=== PATIENT | female | born 1990 | race Caucasian/White ===

== ENCOUNTER → 2020-07-20 | Outpatient (CLI) | payer SELFPAY ==
[2020-07-25 04:08] LABS: Chlamydia By Nucleic Acid AMP Negative (Negative)
[2020-07-25 07:41] LABS: Gonococcus By Nucleic Acid AMP Negative (Negative)
[2020-07-26 16:23] LABS: HPV APTIMA, High Risk Negative (Negative)
[2020-07-27 22:45] LABS: HPV Reflexed? YES, CHARGE PATIENT
== END | disposition home or self-care (01) ==
LOC: LABSPEC 16:55
PROVIDERS: Visit Provider Student in an Organized Health Care Education/Training Program
DX: Z12.4 Encounter for screening for malignant neoplasm of cervix (principal)
CPT/HCPCS: 87491; 87591; 87624; 88175; G0145

== ENCOUNTER → 2020-07-24 10:22 | Outpatient (CLI) | payer SELFPAY ==
[2020-07-24 11:51] LABS: Absolute Neutrophil Count 8.9 X10^3/uL (2.0-7.7); Basophil# 0.07 X10^3/uL; Basophil% 0.6 % (0-1); Eosinophil# 0.15 X10^3/uL; Eosinophils% 1.2 % (0-5); Hematocrit 37.4 % (37-47); Hemoglobin 12.5 g/dL (12.0-15.0); Lymphocyte % 20.8 % (19-41); Mean Corp Hgb Conc 33.4 g/dL (32-36); Mean Corpuscular Volume 95.7 fL (81-99); Mean Platelet Vol. 11.4 fl (6.2-12.0); Monocyte# 0.78 X10^3/uL; Monocyte% 6.2 % (0-10); NRBC Flagged by Analyzer 0 % (0-5); Neutrophil # 8.89 X10^3/uL (2.7-7.7); Neutrophil % 70.9 % (47-70); Platelet Count 187 K/mm3 (150-450); RBC Distribution Width CV 13.6 % (11.6-14.6); RBC Distribution Width SD 46.9 fl (35.1-43.9); Red Blood Count 3.91 M/mm3 (4.2-5.4); White Blood Count 12.5 K/mm3 (4.4-11.0)
[2020-07-24 12:05] LABS: Amphetamine Urine VISTA NEGATIVE (<1000 ng/mL); Barbiturate Urine VISTA NEGATIVE (< 200 ng/mL); Benzodiazepine Urine VISTA NEGATIVE (< 200 ng/mL); Cocaine Urine VISTA NEGATIVE (< 300 ng/mL); Ecstacy Urine VISTA NEGATIVE (< 500 ng/mL); Methadone Urine VISTA NEGATIVE (< 300 ng/mL); PCP Urine VISTA NEGATIVE (< 25 ng/mL); THC Urine VISTA NEGATIVE (< 50 ng/mL); Vista UDS pH Range 6
[2020-07-24 12:48] LABS: HIV - WCH Non-Reactive (Nonreactive); Hepatitis B Surface Antigen Non-Reactive (Nonreactive); Rubella IgG Reactive (Nonreactive)
[2020-07-24 12:52] LABS: Hepatitis C Antibody REACTIVE (Nonreactive)
[2020-07-27 01:10] LABS: Prenatal RPR NONREACTIVE (NONREACTIVE)
== END ==
PROVIDERS: Visit Provider Student in an Organized Health Care Education/Training Program
DX: Z34.81 Encounter for supervision of other normal pregnancy, first trimester (principal)
CPT/HCPCS: 36415; 80307; 85025; 86703; 86762; 86803; 87086; 87340

== ENCOUNTER → 2020-11-16 09:49 | Outpatient (CLI) | payer SELFPAY ==
[2020-11-16 10:49] LABS: Hematocrit 32.6 % (37-47); Hemoglobin 11.1 g/dL (12.0-15.0); Mean Corpuscular Hgb 32.7 pg (27.0-32.0); Mean Corpuscular Volume 96.2 fL (81-99); Mean Platelet Vol. 10.9 fl (6.2-12.0); Platelet Count 202 K/mm3 (150-450); RBC Distribution Width CV 12.8 % (11.6-14.6); RBC Distribution Width SD 45.3 fl (35.1-43.9); Red Blood Count 3.39 M/mm3 (4.2-5.4); White Blood Count 10.7 K/mm3 (4.4-11.0)
[2020-11-16 10:55] LABS: Glucose Challenge Gest 1H 50g 96 mg/dL (70-140)
== END ==
PROVIDERS: Visit Provider Student in an Organized Health Care Education/Training Program
DX: Z34.82 Encounter for supervision of other normal pregnancy, second trimester (principal)
CPT/HCPCS: 36415; 82950; 85027

== ENCOUNTER → 2021-01-10 09:45 | Outpatient (CLI) | payer SELFPAY ==
[2021-01-10 12:11] LABS: HIV - WCH Non-Reactive (Nonreactive); Syphilis Antibodies Non-reactive
[2021-01-11 14:09] LABS: HCV Quant. RNA PCR HCV Not Detected IU/mL (.)
== END ==
PROVIDERS: Visit Provider Obstetrics & Gynecology
DX: B17.10 Acute hepatitis C without hepatic coma (principal)
CPT/HCPCS: 36415; 86703; 86780; 87522

== ENCOUNTER → 2021-02-06 | Outpatient (CLI) | payer SELFPAY | END | disposition home or self-care (01) | LOC: LABSPEC 10:44 | PROVIDERS: Visit Provider Obstetrics & Gynecology | DX: Z36.85 Encounter for antenatal screening for Streptococcus B (principal) | CPT/HCPCS: 87081 ==

== ENCOUNTER 2021-02-28 17:03 | Inpatient (IN) | payer SELFPAY ==
[2021-02-28] VITALS (18 sets, daily range): BP systolic 126–166; BP diastolic 68–89; PULSE 68–76; RESP 18; TEMP 36.4–37.2; O2SAT 95–97; BMI 30.2
[2021-02-28 17:34] LABS: Absolute Lymphocyte Count 1.92 X10^3/uL (0.83-4.51); Absolute Neutrophil Count 8.1 X10^3/uL (2.0-7.7); Basophil# 0.04 X10^3/uL; Basophil% 0.4 % (0-1); Eosinophil# 0.09 X10^3/uL; Eosinophils% 0.8 % (0-5); Hematocrit 34.3 % (37-47); Hemoglobin 11.5 g/dL (12.0-15.0); Lymphocyte # 1.92 X10^3/ul (0.83-4.51); Lymphocyte % 17.1 % (19-41); Mean Corp Hgb Conc 33.5 g/dL (32-36); Mean Corpuscular Hgb 32.2 pg (27.0-32.0); Mean Corpuscular Volume 96.1 fL (81-99); Monocyte# 1.06 X10^3/uL; Monocyte% 9.5 % (0-10); NRBC Flagged by Analyzer 0 % (0-5); Neutrophil # 8.05 X10^3/uL (2.7-7.7); Neutrophil % 71.8 % (47-70); Platelet Count 215 K/mm3 (150-450); RBC Distribution Width SD 46.1 fl (35.1-43.9); Red Blood Count 3.57 M/mm3 (4.2-5.4); White Blood Count 11.2 K/mm3 (4.4-11.0)
--- NOTE | 2021-02-28 17:34 | HP.PCM_ITS ---
History and Physical Date of Admission: 02/28/21 ACOG ANTEPARTUM RECORD - HISTORY AND PHYSICAL (02/28/2021) Name: CARRIE HOLLOWAY History of this : This is a 30 year old [id number] presents at 39 wks + 1 days gestation in active labor at 8 cm dilated with ROM. OB Physician: Mya Sykes [place]'s Physician: UNDECIDED ...................................................................... : 1990 Age: 30 Address: [address] [place] [address] [address] [place] [address] Phone: H) [phone] Insurance Carrier: Emergency Contact: BORIS HOLLOWAY [phone] ...................................................................... Final JEREMIAH: 03/06/21 By Ultrasound: 7 weeks PARITY: (G-Total Pregnancies P-Fullterm,Premature,Induced AB,Spont AB, Ectopics, Multiple,Living) JEREMIAH CONFIRMATION: By LMP: 05/17/20 Initial Exam: 02/21/21 Final JEREMIAH: 03/06/21 OB PROBLEM LIST: ALLERGIC PENICILLINS, CODEINE. Plans for the first time. Enc office class. Smoker. Was 1 1/2 PPD. Now 5-7 c daily. Trying hard to quit. Declines genetics tests. Hep C positive Hx of IV drug use. Consider viral load Hx of 36wk while on IV drugs , not an indications for Progesterone ALLERGIES: Codeine Hives and/or rash Penicillins Laryngeal edema MEDICATIONS: Gummies 400 mcg-35 mg-25 mg-5 mg chewable tablet One Gummie 2 x daily SOCIAL HISTORY: Smoking - Advised to quit and Smoker 17 y. Was 1 1/2 PPD. Now 5-7 daily. Alcohol Use - None Diet - balanced Diet and 1 cup coffee. Water tries for 80 oz. 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 Hours Worked - All the time. Spouse-Sig Other Name - Boris Holloway Spouse-Sig Other Occupation - [employer] Spouse-Sig Other Phone No - [phone] Children Name(s) - [place] PRIOR DELIVERY HISTORY DEL DATE GEST LAB WT LB WT OZ TYPE ANES LABOR TX 05 Sep 15 36 12 5 15 Vag None yes ANTEPARTUM FLOW CHART VISIT GE RTC FU F F MA U U DATE WK MD WKS HT PN HR M SS BP ED WT MA GL D EF ST __ ____ ___ __ __ ___ __ __ __ ___ __ __ __ ___ __ 16 Feb JMW 1 38 V + + 120/76 sl 171 tr - 2+ 75 -2 10 Feb SHM 1 37 V + + 136/80 0 169 ne ne 2 50 -3 Jan JM 1 36 V on + 122/70 tr 171 ne ne Jan JM 2 37 V + + 122/70 0 166 tr - 04 Jan JM 2 32 V + + 112/50 0 166 - - Jan 05 JM 2 30 V + + 132/80 0 162 tr - 08 Jan 03 JM 2 28 - + + 100/58 sl 163 tr - Nov 24 CM 4 24 + + 116/60 sl 158 tr - 10 October 19 CM 4 + + 118/70 0 153 - - Sep 15 CM 4 + 122/68 0 151 ne ne 15 Aug 17 JM 4 11 - + 118/72 0 151 ne ne 15 Jul 7 CM 4 +U 108/78 0 147 - - ANTEPARTUM NOTE(S): Feb 22 2021: Good FM Feb 16 2021: Feb 06 2021: GBS, LARC today Jan 26 2021: Feeling great, Good FM Jan 10 2021: feeling well. Hep C viral load today. AM Dec 28 2020: Good FM,Feeling Well Dec 14 2020: see note Nov 16 2020: occasional cramping encouraged water, glucola today Oct 16 2020: Sep 18 2020: Aug 21 2020: Jul 24 2020: COMPREHENSIVE ANTEPARTUM NOTE(S): Feb 22 2021: Carrie is here for visit. She relates some episodes of being dizzy. Feels this may be her ears? Advised could try antihistamine/decongestant, Make sure getting adequate hydration and protein. Reviewed FM, SROM, and labor. Lives 1 hour away and had rapid labors prior. Can head in when ctx's are approx 10 min apart. LMT Feb 16 2021: Daljitiis here for PNV at 37/3. Has noticed baby movement has changed but reports good FM. No edema noted today. Would like cervix check today. Having BH ctx but is not progressing. Voicing no concerns. Urine neg/neg. LSS Feb 16 2021: Reviewed IOL indications. GBS neg. Labor, ROM, FM precautions. Feb 08 2021: H taken to OB. ab Feb 06 2021: Carrie is here for PNV following US. States she is feeling well with good FM. LARC discussed and declined, form signed. GBS today. Trace of swelling noted in feet. Urine neg/neg. LSS Feb 06 2021: 36 weeks, GBS collected today. Growth ultrasound today AGA. Continue routine follow-up. VI Jan 26 2021: Carrie presents here today at 34 wks 3 days and reports feeling great with good FM. Denies new concerns at this time. EULALIA Jan 26 2021: 34wk, Hep C viral load undectable. HIV, RPR neg. GBS next visit. Growht u/s next visit. VI Jan 10 2021: 32 weeks, for hepatitis C viral load today. HIV, RPR today. VI Dec 28 2020: 30 weeks, patient agrees to check hep C viral load next visit. VI Dec 14 2020: Notes increased pressure and maternity support belt encouraged. Reviewed FM, PTL. Tdap encouraged and reviewed family members around should also be up to date. LMT Dec 14 2020: 20 weeks, 1 hour GTT within normal limits. Will need hep C viral load in future visit. VI Nov 16 2020: 24/2w visit. Glucola drawn. Hx of IVDA. Hx of HCV - needs viral load drawn. DIscussed TDAP 27-36w. F/u 4w. CM Oct 16 2020: Comprehensive US showing no anomalies, normal fluid, AGA, Anterior placenta and no previa. She is feeliing FM more on the sides and advised this is to be expected w/Anterior placenta. Doing well. Glucola bottle and instructions given to be done next visit. Advised she needs to be 24 weeks for blood draw so schedule next appt accordingly. kbm Oct 16 2020: 19/6w visit. Anatomy wnl. Hx of IVDA. Hx of HCV - viral load with GTT. Glucola bottle given. F/u 4w CM Sep 18 2020: Carrie is here for PNV. No edema presently but states she occ will swell by end of day. Eating and taking fluids well without difficulty. No compliants for this visit. Urine neg/neg. LSS Sep 18 2020: 15/6w visit. Hx of IVDA - no longer using. HCV - add viral load to 1hr. F/u 4w with anatomy US. CM Aug 21 2020: Carrie is here for PNV. States having very little nausea. Eating and taking fluids without difficulty. No edema at this visit. No complaints or concerns. Urine neg/neg. LSS Aug 21 2020: 11wk, PNP with Hep C positive. Pt known Hep C pos, used IV drugs now clean. To follow up with GI post . Will consider viral load at next visit. Pt with 36wk while on IV drugs, no indicated for Progesterone. Will start ASA. JM Aug 02 2020: TELEHEALTH NOB-Carrie is a 29 yo G 2 P 1 with JEREMIAH 03-06-21 planning a vag del at [facility] without an epidural, uncertain of post disch ped care and does plan to breastfeed for the 1st time. Carrie works all the time beside [employer] in [place], a women[facility]re[facility] [place]. She and her , Boris, who also works there live beside it. Carrie has a 12 year old son. This is Boris's first. Carrie colvin Jul 24 2020: 7/6w visit, JEREMIAH FINAL 03/06/21 by 7w US. Declines genetic and carrier screening. Feeling well. No family genetic hx. PNP done today. F/u 4w. CM Jul 24 2020: Carrie is here at 7 w 6 d gest w JEREMIAH 03-06-21. Feeling minimal nausea but is quite fatigued. Works at [employer] in [employer]. Genetics Screening form completed noting no family issues. Genetics testing declined. EPDS score 6. Labwork drawn. DR. REVIEW OF SYSTEMS: GENERAL - Denies fever, or chills SKIN - Denies rash, new skin lesions, or change in moles EYES - Denies blurred vision, or change in visual acuity EARS - Denies ear pain, or difficulty hearing NOSE - Denies nasal congestion, discharge, or bleeding MOUTH - Denies sore throat, or difficulty swallowing NECK - Denies pain or swelling RESPIRATORY - Denies shortness of breath, cough, wheezing CARDIOVASCULAR - Denies palpitations, chest pain, orthopnea, PND, peripheral edema, syncope or claudication GASTROINTESTINAL - Denies nausea, vomiting, diarrhea, constipation, Denies abdominal pain, melena and or bright red blood GENITOURINARY - Denies dysuria, frequency of urination, urgency, or hesitancy MUSCULOSKELETAL - Denies joint or muscle pain, or back pain NEUROLOGICAL - Denies localized numbness, weakness, or tingling PSYCHIATRIC - Denies depression, anxiety, substance abuse or suicide attempts ENDOCRINE - Denies heat or cold intolerance, weight loss or gain, increasing thirst HEMATO-IMMUNOLOGIC - Denies easy bruising, bleeding, oral ulcerations or recurrent infections GENETICS SCREENING: Age 35+ years: No Thalassemia: No Neural Tube Defect: No Down Syndrome: No FRANCA-SACHS: No Sickle Cell Disease: No Hemophilia: No Musc. Dystrophy: No Cystic Fibrosis: No-declines screening [place] Chorea: No Mental Retardation: No Fragile X: No Other genetic: No Other defects: No SABs/still births: No Drugs since LMP: No INFECTION HISTORY: High risk AIDS: No High risk Hepatitis: Yes Exposed to TB: No Exposed to Herpes: No Rash/viral illness since LMP: No History of STD: No MENSTRUAL HISTORY: *Menses Amount/Duration: 4 daysMenses Regularity: RegularMenarche (Age Onset): 12* PAST SUMMARY: PARITY: 1. Total Pregnancies............ 2 2. Full Term Pregnancies........ 1 3. Premature.................... 0 4. Abortions - Induced.......... 0 5. Abortions - Spontaneous...... 0 6. Ectopics..................... 0 7. Multiple Births.............. 0 8. Living Children.............. 1 PAST #1: Date of :.................. 09/11/[birth year] Gestation Weeks:................ 36 Length of labor(hours):......... 12 Sex:............................ M Weight-lbs:............... 5 Weight-oz:................ 15 Type of Delivery:............... Vag Type of Anesthesia:............. None Place of Delivery:.............. WR Treatment of Labor?:.... yes Comment: DRUG USE THIS PG. PHYSICAL EXAMINATION General Appearence: 30 yo female in no acute distress Vital Signs: AF, VSS Heart: RRR without rubs or gallops Lungs: CTA x 2 Breasts: deferred Abdomen: gravid Pelvis: Cervix: Presentation: cephalic Station: Fetus: Size: AGA Movement: present Heart: present LAB TEST(S) ORDERED SINCE:06/09/20 02/09/2021 RULE OUT BETA STREP (GRP. B) 01/11/2021 HEPATITIS C,RNA PCR VIRAL LOAD 01/10/2021 L509.8000 01/10/2021 HIV - [facility] 11/16/2020 GLUCOSE CHALLENGE GEST 1H 50G 11/16/2020 CBC-COMPLETE BLOOD CNT NO DIFF 07/26/2020 URINE CULTURE 07/26/2020 RPR 07/26/2020 PAP IG HPV HR APTIMA 07/25/2020 CHLAMYDIA/GC JANET APTIMA 07/24/2020 URINE DRUG SCREEN (VISTA) 07/24/2020 RUBELLA IGG 07/24/2020 HIV - [facility] 07/24/2020 HEPATITIS C ANTIBODY 07/24/2020 HEPATITIS B SURFACE ANTIGEN 07/24/2020 CBC W/DIFF, AUTOMATED == ==== Order Observation Description Value Ref_Range A* Site == ==== RULE OUT BETA S NOTE [facility] HEPATITIS C,RNA NOTE [facility] HEPATITIS C,RNA HCV QT RNA PCR HCV Not Detected IU/m . [facility] HEPATITIS C,RNA HCV LOG 10 TNP . [facility] HEPATITIS C,RNA TEST INFO: Comment . [facility] The quantitative range of this assay is 15 IU/mL to 100 million IU/mL. Performed at: [facility] [id number] Client Support Consultant: Kevin Galindo MD, Phone: [phone] HIV - [facility] NOTE [facility] HIV - [facility] HIV Non-Reactive Nonreactive ML L509.8000 NOTE [facility] L509.8000 SYPHILIS ABS Non-reactive ML GLUCOSE CHALLEN NOTE [facility] GLUCOSE CHALLEN GLU GEST 50G 1H 96 mg/dL 70-140 ML CBC-COMPLETE BL NOTE [facility] CBC-COMPLETE BL WBC 10.7 K/mm3 4.4-11.0 ML CBC-COMPLETE BL RBC 3.39 M/mm3 4.2-5.4 L ML CBC-COMPLETE BL HGB 11.1 g/dL 12.0-15.0 L ML CBC-COMPLETE BL HCT 32.6 37-47 L ML CBC-COMPLETE BL MCV 96.2 fL 81-99 ML CBC-COMPLETE BL MCH 32.7 pg 27.0-32.0 H ML CBC-COMPLETE BL MCHC 34.0 g/dL 32-36 ML CBC-COMPLETE BL RDW CV 12.8 11.6-14.6 ML CBC-COMPLETE BL RDW SD 45.3 fl 35.1-43.9 H ML CBC-COMPLETE BL PLT 202 K/mm3 150-450 ML CBC-COMPLETE BL MPV 10.9 fl 6.2-12.0 ML URINE DRUG SCRE NOTE [facility] URINE DRUG SCRE VISTA UDS PH 6 ML URINE DRUG SCRE AMPHETAMINES NEGATIVE <1000 ng/mL ML URINE DRUG SCRE BARBITIURATES NEGATIVE < 200 ng/mL ML URINE DRUG SCRE BENZODIAZIPINE NEGATIVE < 200 ng/mL ML URINE DRUG SCRE COCAINE NEGATIVE < 300 ng/mL ML URINE DRUG SCRE ECSTACY NEGATIVE < 500 ng/mL ML URINE DRUG SCRE METHADONE NEGATIVE < 300 ng/mL ML URINE DRUG SCRE OPIATES NEGATIVE < 300 ng/mL ML URINE DRUG SCRE PCP NEGATIVE < 25 ng/mL ML URINE DRUG SCRE THC NEGATIVE < 50 ng/mL ML RPR NOTE [facility] RPR RPR NONREACTIVE NONREACTIVE ML URINE CULTURE NOTE [facility] PN N [facility]~[address] [place], [address]~ HEPATITIS B [place] NOTE [facility] HEPATITIS B [place] HEP B SURF AG Non-Reactive Nonreactive ML HIV - WC NOTE [facility] HIV - [facility] HIV Non-Reactive Nonreactive ML RUBELLA IGG NOTE [facility] RUBELLA IGG RUBELLA IGG Reactive Nonreactive ML Antibody Results Interpretation of Immune Status Non Reactive Presumed Non-Immune Equivocal Equivocal Reactive Presumed Immune HEPATITIS C ANT NOTE [facility] HEPATITIS C ANT HEPATITIS C AB REACTIVE Nonreactive ML CRITICAL VALUE VERIFIED. CALLED TO [facility]RAD 07/24/20 1250 Larissa Romero. RESULTS READ BACK BY SAME . Non Reactive: < 0.8 Equivocal: >/= 0.8 to < 1.0 Reactive: >/= 1.0 The CDC recommends that a reactive/equivocal HCV antibody result be followed up by the HCV Nucleic Acid Amplification test ([id number]) CBC W/DIFF, AUT NOTE [facility] CBC W/DIFF, AUT WBC 12.5 K/mm3 4.4-11.0 H ML CBC W/DIFF, AUT RBC 3.91 M/mm3 4.2-5.4 L ML CBC W/DIFF, AUT HGB 12.5 g/dL 12.0-15.0 ML CBC W/DIFF, AUT HCT 37.4 37-47 ML CBC W/DIFF, AUT MCV 95.7 fL 81-99 ML CBC W/DIFF, AUT MCH 32.0 pg 27.0-32.0 ML CBC W/DIFF, AUT MCHC 33.4 g/dL 32-36 ML CBC W/DIFF, AUT RDW CV 13.6 11.6-14.6 ML CBC W/DIFF, AUT RDW SD 46.9 fl 35.1-43.9 H ML CBC W/DIFF, AUT PLT 187 K/mm3 150-450 ML CBC W/DIFF, AUT MPV 11.4 fl 6.2-12.0 ML CBC W/DIFF, AUT NEUT% 70.9 47-70 H ML CBC W/DIFF, AUT LY% 20.8 19-41 ML CBC W/DIFF, AUT MONO% 6.2 0-10 ML CBC W/DIFF, AUT EO% 1.2 0-5 ML CBC W/DIFF, AUT BASO% 0.6 0-1 ML CBC W/DIFF, AUT IG% 0.300 0.0-0.9 ML IG% - Immature Granulocytes (promyelocytes, myelocytes and metamyelocytes) > 1% indicates that a LEFT SHIFT is Present. CBC W/DIFF, AUT ABSOLUTE NEUT 8.9 X10 3/uL 2.0-7.7 H ML CBC W/DIFF, AUT ABSOLUTE LYMPH 2.60 X10 3/uL 0.83-4.51 ML CBC W/DIFF, AUT NUCLEATED RBC 0 0-5 ML PAP IG HPV HR A NOTE [facility] PAP IG HPV HR A DIAG Comment . [facility] NEGATIVE FOR INTRAEPITHELIAL LESION OR MALIGNANCY. PAP IG HPV HR A ADEQ Comment . [facility] Satisfactory for evaluation. Endocervical and/or squamous metaplastic cells (endocervical component) are present. PAP IG HPV HR A PERFORM Comment . [facility] Aislinn Rodas, Supervisory Performance Improvement Analyst (ASCP) This liquid based ThinPrep(R) pap test was screened with the use of an image guided system. PAP IG HPV HR A COMM . . [facility] PAP IG HPV HR A PAPSMR Comment . [facility] The Pap smear is a screening test designed to aid in the detection of premalignant and malignant conditions of the uterine cervix. It is not a diagnostic procedure and should not be used as the sole means of detecting cervical cancer. Both false-positive and false-negative reports do occur. PAP IG HPV HR A HPV APTIMA, HR Negative Negative [facility] This nucleic acid amplification test detects fourteen high- risk HPV types (16,18,31,33,35,39,45,51,52,56,58,59,66,68) without differentiation. Performed at: [address] [id number] Client Support Consultant: Susana Cobian MD, Phone: [phone] Performed at: =[address] [id number] Client Support Consultant: Susana Cobian MD, Phone: [phone] CHLAMYDIA/GC NA NOTE [facility] CHLAMYDIA/GC NA CHLAMY,NUC ACID Negative Negative [facility] CHLAMYDIA/GC NA GC BY NUC ACID Negative Negative [facility] Performed at: =[address], [place] [id number] Client Support Consultant: Susana Cobian MD, Phone: [phone] Group B Beta Streptococcus is not isolated. Culture exhibits no growth. A POSITIVE == ==== Impression /Plan: 39 wks + 1 days intrauterine . Preparations in progress for delivery.
[2021-02-28] MEDS: Lactated Ringers 1,000 ML 50 ML IV (17:56)
[2021-02-28] MEDS: Oxytocin 30 units/NS 500 ml 30 UNITS/500 ML IV.SOLN 334 UNITS IV (18:01)
--- NOTE | 2021-02-28 18:08 | EX.PCM.OBRPT ---
Maternal Data Information Final JEREMIAH: 03/06/21 Gestational age: 39 weeks 1 day gestation Vaginal Delivery Maternal Presentation Maternal Presentation: Active Labor Operative Information Date of Procedure: 02/28/21 Pre-Operative Diagnosis: IUP Post-Operative Diagnosis: IUP Type of Anesthesia: Local with 1% Lidocaine Estimated Blood Loss: 250 cc Fluids Replaced: Crystalloid Findings Description of Procedure: Spontaneous vaginal delivery of a viable male infant with Apgars of 9/9 from an occiput anterior presentation with clear amniotic fluid and normal three-vessel placenta. No episiotomy. First-degree midline laceration repaired with 3-0 Vicryl suture under local. 0.5 cm right labial laceration not bleeding and not repaired. Sponges okay. Delivery physician: Renan Bourne MD. Presentation: Vertex Amniotic Membrane Rupture Type: Spontaneous Amniotic Fluid Description: Clear Placental Delivery Description: Spontaneous Placenta Disposition: [facility] Cord Vessel Description: 3 Vessels Cord Entanglement: None Infant A Gender: Male (1 minute): 9 (5 minute): 9 Delayed Cord Clamping: Yes Post Vaginal Delivery Medications Given After Delivery: IV Pitocin Episiotomy Description: None Laceration: None, Midline and 1st degree Complication Complications: None
--- NOTE | 2021-02-28 18:12 | PCM.DC ---
Discharge Instructions Diet Discharge Diet: No restrictions Activity Discharge Activity: May Drive (In 1 to 2 days if not taking narcotic pain medication), May Shower and May Take a Tub Bath May resume sexual activity in: 4-6 weeks Additional Activity Instructions:: Nothing in the vagina for 4-6 weeks. You may return to work/school in 6 weeks. Dressing / Incision Call your doctor if you observe: Fever of 101 or Higher, Inability to urinate, Inability to have a bowel movement and Using more than 1 pad per hour Follow Up Care Please Follow Up With: Renan Bourne MD When: Call [phone] to make an appointment with your doctor in 6 weeks. Test Results: Test results from this visit will be discussed in further detail at your follow-up appointment, if applicable. Discharge Plan Admission Admit Date/Time: 02/28/21 17:03 Primary Reason for Your Visit: Vaginal delivery Attending Provider: Renan Bourne Discharge Orders/Prescriptions Prescriptions: No Action aspirin [Baby Aspirin] 81 mg Tablet,Chewable 81 mg PO DAILY RF: 0 Prenatabs FA 29-1 mg Tablet 1 tab PO DAILY RF: 0 Disposition Disposition (needs filled in before D/C Order can be placed): Home, Self Care
[2021-02-28] MEDS: Acetaminophen 500 MG Tablet 1000 MG PO (18:42)
[2021-03-01 03:30] VITALS: BP 126/77; PULSE 73; RESP 16; TEMP 36.6; O2SAT 96
[2021-03-01] MEDS: Ibuprofen 600 MG Tablet PO ×2 (06:07→15:14)
[2021-03-01 07:47] VITALS: BP 128/80; PULSE 63; RESP 16; TEMP 36.4
--- NOTE | 2021-03-01 08:15 | PCM.DC ---
Discharge Instructions Diet Discharge Diet: No restrictions Activity Discharge Activity: Return to Normal Activity, May Drive and May Shower May resume sexual activity in: 4-6 weeks Additional Activity Instructions:: Nothing in the vagina for 4-6 weeks. You may return to work/school in 6 weeks. Dressing / Incision Call your doctor if your incision/area has: Continuous Slow Oozing and Foul Smelling Discharge Call your doctor if you observe: Fever of 101 or Higher, Shortness of breath and Chest pain Follow Up Care Please Follow Up With: Renan Bourne MD When: 4 to 6 weeks Test Results: Test results from this visit will be discussed in further detail at your follow-up appointment, if applicable. Discharge Plan Admission Admit Date/Time: 02/28/21 17:03 Primary Reason for Your Visit: Vaginal delivery Attending Provider: Renan Bourne Discharge Orders/Prescriptions Prescriptions: No Action aspirin [Baby Aspirin] 81 mg Tablet,Chewable 81 mg PO DAILY RF: 0 Prenatabs FA 29-1 mg Tablet 1 tab PO DAILY RF: 0 Disposition Disposition (needs filled in before D/C Order can be placed): Home, Self Care
--- NOTE | 2021-03-01 08:17 | PCM.PN.OB ---
Subjective Subjective No overnight complaints. Objective Data Objective Data Vital Signs: Vital Signs Temp Pulse Resp BP Pulse Ox 97.5 F L 63 16 128/80 H 96 03/01/21 07:47 03/01/21 07:47 03/01/21 07:47 03/01/21 07:47 03/01/21 03:30 Oxygen Delivery Method Room Air Weight: 170 lb 13.732 oz Body Mass Index (BMI) 30.2 Intake & Output: Intake and Output for Last 24 Hours 02/27/21 02/28/21 03/01/21 23:59 23:59 23:59 Intake Total 504.17 / 504.17 Output Total 550 / 550 Balance -45.83 / -45.83 Lab / Micro Data Result Diagrams: 02/28/21 17:15 Labs: Laboratory Results - last 24 hr 02/28/21 17:15: WBC 11.2 H, RBC 3.57 L, Hgb 11.5 L, Hct 34.3 L, MCV 96.1, MCH 32.2 H, MCHC 33.5, RDW Std Deviation 46.1 H, RDW Coeff of Debbie 13.0, Plt Count 215, MPV 11.0, Immature Gran % (Auto) 0.400, Neut % (Auto) 71.8 H, Lymph % (Auto) 17.1 L, [place] % (Auto) 9.5, Eos % (Auto) 0.8, Baso % (Auto) 0.4, Absolute Neuts (auto) 8.1 H, Absolute Lymphs (auto) 1.92, Nucleated RBC % 0 02/28/21 17:15: Blood Type A POSITIVE, Antibody Screen NEGATIVE Micro: Microbiology 02/28/21 17:20 Nasal Secretion SARS-CoV-2 Antigen (Rapid) - Final Physical Exam Const alert, oriented x3, no apparent distress, average body habitus, healthy appearing and well nourished HEENT normocephalic and moist oral mucous membranes Head and Scalp: atraumatic Face and Sinus: normal facial exam Eyes PERRL Neck full ROM Resp normal respiratory effort, no retractions and no use of accessory muscles Extremity normal to inspection, full ROM and no clubbing, cyanosis or edema Psych mental status grossly normal, affect normal, speech normal and activity/motor behavior normal Assessment & Plan (1) Vaginal delivery: PLAN: day 1. Breast-feeding. 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
[2021-03-01 12:16] VITALS: BP 135/73; PULSE 71; RESP 16; TEMP 36.4
[2021-03-01 16:45] VITALS: BP 127/75; PULSE 64; RESP 16; TEMP 36.6
== END 2021-03-01 19:45 | disposition home or self-care (01) | DRG 807 ==
LOC: WPOUT 17:07 → WP 17:07
PROVIDERS: Admitting Provider Obstetrics & Gynecology; Visit Provider Obstetrics & Gynecology
DX: O99.334 Smoking (tobacco) complicating childbirth (principal); Z37.0 Single live birth; F17.200 Nicotine dependence, unspecified, uncomplicated; O70.0 First degree perineal laceration during delivery; Z3A.39 39 weeks gestation of pregnancy
CPT/HCPCS: 59025; 59050; 85025; 86850; 86900; 86901; 87426; 99218; J7120; G0378

== ENCOUNTER → 2022-09-04 | Outpatient (CLI) | payer MEDICAID, SELFPAY ==
[2022-09-04 16:30] LABS: Absolute Lymphocyte Count 3.95 X10^3/uL (0.83-4.51); Absolute Neutrophil Count 8.7 X10^3/uL (2.0-7.7); Basophil# 0.04 X10^3/uL; Basophil% 0.3 % (0-1); Eosinophil# 0.19 X10^3/uL; Eosinophils% 1.4 % (0-5); Hematocrit 35.2 % (37-47); Hemoglobin 12.1 g/dL (12.0-15.0); Lymphocyte # 3.95 X10^3/ul (0.83-4.51); Lymphocyte % 29.1 % (19-41); Mean Corp Hgb Conc 34.4 g/dL (32-36); Mean Corpuscular Hgb 31.4 pg (27.0-32.0); Mean Corpuscular Volume 91.4 fL (81-99); Mean Platelet Vol. 10.8 fl (6.2-12.0); Monocyte# 0.62 X10^3/uL; Monocyte% 4.6 % (0-10); NRBC Flagged by Analyzer 0 % (0-5); Neutrophil # 8.71 X10^3/uL (2.7-7.7); Neutrophil % 64.2 % (47-70); Platelet Count 233 K/mm3 (150-450); RBC Distribution Width CV 13.9 % (11.6-14.6); RBC Distribution Width SD 46.1 fl (35.1-43.9); Red Blood Count 3.85 M/mm3 (4.2-5.4); White Blood Count 13.6 K/mm3 (4.4-11.0)
[2022-09-04 17:41] LABS: ALB/GLOB Ratio 1.1 RATIO (0.9-2.4); AST(SGOT) 17 U/L (15-37); Alanine Aminotransfer ALT/SGPT 32 U/L (13-56); Albumin, Serum 3.7 g/dL (3.2-5.0); Alkaline Phosphatase 57 U/L (45-117); Anion Gap 8 (5-15); BUN 8 mg/dL (7-18); BUN/Creat Ratio 19.4 RATIO (10-20); Calcium,Total 9.3 mg/dL (8.5-10.1); Chloride 106 mmol/L (98-107); Creatinine, Serum 0.41 mg/dL (0.55-1.02); EST Glomerular Filtration Rate 189 mL/min (>60); Est Glom Filt Rate - Afr Amer 228 mL/min (>60); Globulin 3.3 g/dL (2.2-4.2); Glucose 80 mg/dL (74-106); Potassium 3.4 mmol/L (3.5-5.1); Sodium Level 137 mmol/L (136-145)
[2022-09-04 18:32] LABS: HIV - WCH Non-Reactive (Nonreactive); Hepatitis B Surface Antigen Non-Reactive (Nonreactive); Rubella IgG Reactive (Nonreactive); Syphilis Antibodies Non-reactive
[2022-09-04 18:39] LABS: Hepatitis C Antibody Reactive (Nonreactive)
[2022-09-06 21:07] LABS: HCV Quant. RNA PCR HCV Not Detected IU/mL (.)
[2022-09-07 11:25] LABS: V-Zoster IgG (Immunity) 1387 index (Immune >165)
== END | disposition home or self-care (01) ==
PROVIDERS: Visit Provider Student in an Organized Health Care Education/Training Program
DX: Z34.81 Encounter for supervision of other normal pregnancy, first trimester (principal)
CPT/HCPCS: 80053; 85025; 86703; 86762; 86780; 86787; 86803; 87086; 87340; 87522

== ENCOUNTER → 2022-11-08 | Outpatient (CLI) | payer MEDICAID, SELFPAY ==
[2022-11-08 10:12] LABS: Absolute Lymphocyte Count 2.54 X10^3/uL (0.83-4.51); Absolute Neutrophil Count 8.3 X10^3/uL (2.0-7.7); Basophil# 0.04 X10^3/uL; Basophil% 0.3 % (0-1); Eosinophil# 0.11 X10^3/uL; Eosinophils% 0.9 % (0-5); Hematocrit 33.8 % (37-47); Hemoglobin 11.6 g/dL (12.0-15.0); Lymphocyte # 2.54 X10^3/ul (0.83-4.51); Lymphocyte % 21.6 % (19-41); Mean Corp Hgb Conc 34.3 g/dL (32-36); Mean Corpuscular Hgb 32.9 pg (27.0-32.0); Mean Corpuscular Volume 95.8 fL (81-99); Mean Platelet Vol. 10.3 fl (6.2-12.0); Monocyte# 0.71 X10^3/uL; NRBC Flagged by Analyzer 0 % (0-5); Neutrophil # 8.27 X10^3/uL (2.7-7.7); Neutrophil % 70.6 % (47-70); Platelet Count 191 K/mm3 (150-450); RBC Distribution Width SD 49.4 fl (35.1-43.9); Red Blood Count 3.53 M/mm3 (4.2-5.4); White Blood Count 11.7 K/mm3 (4.4-11.0)
[2022-11-08 10:36] LABS: Creatinine, Urine (random) < 13.00 mg/dL (NO RANGE EST.); Protein, Urine (Random) < 6.0 mg/dL (<11.9)
[2022-11-08 10:56] LABS: ALB/GLOB Ratio 0.9 RATIO (0.9-2.4); AST(SGOT) 13 U/L (15-37); Alanine Aminotransfer ALT/SGPT 19 U/L (13-56); Albumin, Serum 3.2 g/dL (3.2-5.0); Alkaline Phosphatase 63 U/L (45-117); Anion Gap 7 (5-15); BUN 4 mg/dL (7-18); BUN/Creat Ratio 12.3 RATIO (10-20); Calcium,Total 8.8 mg/dL (8.5-10.1); Chloride 111 mmol/L (98-107); Creatinine, Serum 0.33 mg/dL (0.55-1.02); EST Glomerular Filtration Rate 247 mL/min (>60); Est Glom Filt Rate - Afr Amer 299 mL/min (>60); Globulin 3.5 g/dL (2.2-4.2); Glucose 62 mg/dL (74-106); LDH 128 U/L (84-246); Potassium 3.5 mmol/L (3.5-5.1); Protein, Total 6.7 g/dL (6.4-8.2); Sodium Level 140 mmol/L (136-145)
[2022-11-09 12:08] LABS: HCV Quant. RNA PCR HCV Not Detected IU/mL (.)
== END | disposition home or self-care (01) ==
PROVIDERS: Visit Provider Student in an Organized Health Care Education/Training Program
DX: Z34.82 Encounter for supervision of other normal pregnancy, second trimester (principal); B18.2 Chronic viral hepatitis C; Z3A.00 Weeks of gestation of pregnancy not specified
CPT/HCPCS: 36415; 80053; 82570; 83615; 84156; 85025; 87086; 87522

== ENCOUNTER → 2023-01-08 | Outpatient (CLI) | payer MEDICAID, SELFPAY ==
[2023-01-08 11:10] LABS: Absolute Lymphocyte Count 1.78 X10^3/uL (0.83-4.51); Absolute Neutrophil Count 10.9 X10^3/uL (2.0-7.7); Basophil# 0.05 X10^3/uL; Basophil% 0.4 % (0-1); Eosinophil# 0.19 X10^3/uL; Eosinophils% 1.4 % (0-5); Hematocrit 30.8 % (37-47); Hemoglobin 10.2 g/dL (12.0-15.0); Lymphocyte # 1.78 X10^3/ul (0.83-4.51); Lymphocyte % 13.1 % (19-41); Mean Corp Hgb Conc 33.1 g/dL (32-36); Mean Corpuscular Hgb 32.6 pg (27.0-32.0); Mean Corpuscular Volume 98.4 fL (81-99); Monocyte# 0.67 X10^3/uL; Monocyte% 4.9 % (0-10); NRBC Flagged by Analyzer 0 % (0-5); Neutrophil # 10.85 X10^3/uL (2.7-7.7); Neutrophil % 79.6 % (47-70); Platelet Count 189 K/mm3 (150-450); RBC Distribution Width CV 13.1 % (11.6-14.6); RBC Distribution Width SD 46.9 fl (35.1-43.9); Red Blood Count 3.13 M/mm3 (4.2-5.4); White Blood Count 13.6 K/mm3 (4.4-11.0)
[2023-01-08 11:19] LABS: Glucose Challenge Gest 1H 50g 128 mg/dL (70-140)
[2023-01-08 11:41] LABS: Syphilis Antibodies Non-reactive
== END | disposition home or self-care (01) ==
LOC: WOBLAB 10:28
PROVIDERS: Visit Provider Student in an Organized Health Care Education/Training Program
DX: Z34.83 Encounter for supervision of other normal pregnancy, third trimester (principal)
CPT/HCPCS: 36415; 82950; 85025; 86780

== ENCOUNTER 2023-03-25 10:00 | Inpatient (IN) | payer MEDICAID, SELFPAY ==
[2023-03-25] VITALS (34 sets, daily range): BP systolic 124–159; BP diastolic 64–104; PULSE 65–98; RESP 16; TEMP 36.6–37.3; O2SAT 78–98; BMI 26.8
[2023-03-25] MEDS: Lactated Ringers 1,000 ML 50 ML IV (09:15)
[2023-03-25 10:30] LABS: Absolute Lymphocyte Count 2.04 X10^3/uL (0.83-4.51); Absolute Neutrophil Count 10.6 X10^3/uL (2.0-7.7); Basophil# 0.04 X10^3/uL; Basophil% 0.3 % (0-1); Eosinophil# 0.06 X10^3/uL; Eosinophils% 0.4 % (0-5); Hematocrit 33.5 % (37-47); Hemoglobin 11.3 g/dL (12.0-15.0); Lymphocyte # 2.04 X10^3/ul (0.83-4.51); Lymphocyte % 14.7 % (19-41); Mean Corp Hgb Conc 33.7 g/dL (32-36); Mean Corpuscular Hgb 33.1 pg (27.0-32.0); Mean Corpuscular Volume 98.2 fL (81-99); Mean Platelet Vol. 10.6 fl (6.2-12.0); Monocyte% 7.2 % (0-10); NRBC Flagged by Analyzer 0 % (0-5); Neutrophil # 10.61 X10^3/uL (2.7-7.7); Neutrophil % 76.6 % (47-70); Platelet Count 203 K/mm3 (150-450); RBC Distribution Width CV 13.9 % (11.6-14.6); RBC Distribution Width SD 49.5 fl (35.1-43.9); Red Blood Count 3.41 M/mm3 (4.2-5.4); White Blood Count 13.9 K/mm3 (4.4-11.0)
[2023-03-25] MEDS: LACTATED RINGERS 500 ML 999 ML IV (10:50)
[2023-03-25 11:02] LABS: Syphilis Antibodies Non-reactive
[2023-03-25] MEDS: Clindamycin 900 MG/50 ML BAG 75 MG IV (11:05)
[2023-03-25] MEDS: fentaNYL-bupivacaine (epidural) 100 ML BAG EPIDURAL (11:08)
[2023-03-25 11:45] LABS: Amphetamine Urine VISTA NEGATIVE (<1000 ng/mL); Barbiturate Urine VISTA NEGATIVE (< 200 ng/mL); Benzodiazepine Urine VISTA NEGATIVE (< 200 ng/mL); Cocaine Urine VISTA NEGATIVE (< 300 ng/mL); Ecstacy Urine VISTA NEGATIVE (< 500 ng/mL); Methadone Urine VISTA NEGATIVE (< 300 ng/mL); PCP Urine VISTA NEGATIVE (< 25 ng/mL); THC Urine VISTA NEGATIVE (< 50 ng/mL); Vista UDS pH Range 7
[2023-03-25 11:56] LABS: Protein, Urine (Random) 7.6 mg/dL (<11.9); Protein:Creat Ratio 481 mg/g CRE (0-200)
[2023-03-25 12:09] LABS: AST(SGOT) 13 U/L (15-37); Alanine Aminotransfer ALT/SGPT 15 U/L (13-56); Creatinine, Serum 0.38 mg/dL (0.55-1.02); EST Glomerular Filtration Rate 208 mL/min (>60); Est Glom Filt Rate - Afr Amer 252 mL/min (>60); Estimated Creatinine Clearance 174.19 ml/min
--- NOTE | 2023-03-25 13:15 | PCM.HP.OB ---
HPI - General General Date of Admission: 03/25/23 HPI Narrative GA BOOGIE, is a 32 F @ 38 weeks who presents in labor- found to be 5-6 cm with bulging membranes in office with irregular ctx sent for admission. [facility] Medical History (Updated 03/25/23 @ 13:[address] Miryam Duarte MD) Seizures Home Medications vits,calcium no.78-iron fumarate-folic acid 29 mg-1 mg tablet (Prenatabs FA) 1 tab PO DAILY 02/28/21 [History Last Taken 03/23/23] acetaminophen 325 mg tablet (Tylenol) 650 mg PO Q6H pain 03/25/23 [History Last Taken 03/23/23] ferrous sulfate 27 mg iron tablet 27 mg PO DAILY anemia 03/25/23 [History Last Taken 03/23/23] ondansetron 4 mg disintegrating tablet 4 mg PO Q6H PRN nausea 03/25/23 [History Last Taken 03/23/23] promethazine 12.5 mg tablet 12.5 mg PO QHS PRN PRN nausea 03/25/23 [History Last Taken 03/23/23] Allergy/AdvReac Type Severity Reaction Status Date / Time codeine Allergy Hives Verified 02/28/21 17:08 Penicillins Allergy Anaphylaxis Verified 02/28/21 17:07 Surgical History (Updated 03/25/23 @ 10:41 by Sandee Lan) History of surgery History of surgery Social History Smoking Status: Light Smoker (<10/day) History Elective abortions Hx Para 2 Spontaneous abortions Hx # Term Pregnancies Ectopic pregnancies Hx # Pregnancies Multiple births # of living children NST FHR Rate Baby A Baseline: 130 Variability:: Moderate Accelerations:: 15 x 15 Decelerations:: None NST Reactive:: Yes FHR Category:: Category I Vital Signs Vital Signs Vital Signs: 03/25/23 10:09 03/25/23 10:09 03/25/23 10:27 Temperature Pulse Rate 98 Blood Pressure 139/104 H 149/98 H BP Systolic 139 149 BP Diastolic 104 98 Pulse Ox 03/25/23 10:27 03/25/23 10:44 03/25/23 10:44 Temperature Pulse Rate 92 88 Blood Pressure 157/90 H BP Systolic 157 BP Diastolic 90 Pulse Ox 03/25/23 10:58 03/25/23 10:58 03/25/23 11:00 Temperature Pulse Rate 83 Blood Pressure 154/96 H BP Systolic 154 BP Diastolic 96 Pulse Ox 78 03/25/23 11:01 03/25/23 11:01 03/25/23 11:06 Temperature Pulse Rate 86 82 Blood Pressure BP Systolic BP Diastolic Pulse Ox 98 03/25/23 11:06 03/25/23 11:11 03/25/23 11:11 Temperature Pulse Rate 88 Blood Pressure BP Systolic BP Diastolic Pulse Ox 98 97 03/25/23 11:14 03/25/23 11:14 03/25/23 11:16 Temperature Pulse Rate 77 81 Blood Pressure 158/81 H BP Systolic 158 BP Diastolic 81 Pulse Ox 03/25/23 11:16 03/25/23 11:20 03/25/23 11:20 Temperature Pulse Rate 84 Blood Pressure 137/82 H BP Systolic 137 BP Diastolic 82 Pulse Ox 97 03/25/23 11:25 03/25/23 11:25 03/25/23 11:31 Temperature Pulse Rate 89 Blood Pressure 143/84 H 140/86 H BP Systolic 143 140 BP Diastolic 84 86 Pulse Ox 03/25/23 11:31 03/25/23 11:35 03/25/23 11:35 Temperature Pulse Rate 92 80 Blood Pressure 143/78 H BP Systolic 143 BP Diastolic 78 Pulse Ox 03/25/23 11:41 03/25/23 11:41 03/25/23 11:45 Temperature Pulse Rate 80 Blood Pressure 154/89 H 136/90 H BP Systolic 154 136 BP Diastolic 89 90 Pulse Ox 03/25/23 11:45 03/25/23 11:58 03/25/23 11:58 Temperature Pulse Rate 82 74 Blood Pressure BP Systolic BP Diastolic Pulse Ox 97 03/25/23 12:15 03/25/23 12:15 03/25/23 12:30 Temperature Pulse Rate 72 76 Blood Pressure 139/85 H BP Systolic 139 BP Diastolic 85 Pulse Ox 03/25/23 12:30 03/25/23 12:30 03/25/23 12:45 Temperature 99.1 F Pulse Rate Blood Pressure 124/76 H BP Systolic 124 BP Diastolic 76 Pulse Ox 97 03/25/23 12:45 03/25/23 13:13 03/25/23 13:13 Temperature Pulse Rate 79 95 Blood Pressure 139/93 H BP Systolic 139 BP Diastolic 93 Pulse Ox Weight Weight: 68.7 kg Body Mass Index (BMI) 26.8 Physical Exam Const alert and oriented x3 General Appearance: cooperative HEENT normocephalic GI GI Narrative: Gravid, non tender to palpation. OB / External & Speculum: external exam normal Extremity normal to inspection Skin no rashes or lesions noted Neuro oriented x3 and CN's II-XII intact bilaterally Psych Appearance: grossly normal Labs Labs Labs: Blood Type A POSITIVE Antibody Screen NEGATIVE Hct 33.5 % (37-47) L Hgb 11.3 g/dL (12.0-15.0) L Syphilis Total Ab Non-reactive VZV IgG Antibody 1387 index (Immune >165) Rubella IgG Antibody Reactive (Nonreactive) Hep Bs Antigen Non-Reactive (Nonreactive) Hepatitis C Antibody Reactive (Nonreactive) Chlamydia DNA (JANET) Negative (Negative) N.gonorrhoeae DNA (JANET) Negative (Negative) HIV 1&2 Antibody Non-Reactive (Nonreactive) Glucose 1 Hr 50 gm 128 mg/dL (70-140) Rhogam given: No Miscellaneous Test Assessment & Plan (1) History of hepatitis C: (2) History of delivery, currently : (3) Tobacco use affecting in third trimester, antepartum: (4) History of drug use: (5) with care elsewhere: (6) Anemia affecting in third trimester: PLAN: Plan Admit to L&D Montior FHR/TOCO Epidural if requested for pain Monitor VS Anticipate GBS positive - clindamycin sensitive for prophylaxis
--- NOTE | 2023-03-25 13:19 | PCM.PN.BLA ---
Progress Note AROM performed- ? port wine colored amniotic fluid. FHR cat 1. Continue to monitor. VE: /-2
[2023-03-25] MEDS: Oxytocin 10 UNITS/ML Vial IM (13:53)
[2023-03-25] MEDS: Oxytocin 15 Units/NS 250ml 15 UNITS/250 ML IV.SOLN 83 UNITS IV (13:54)
--- NOTE | 2023-03-25 13:57 | EX.PCM.OBRPT ---
Vaginal Delivery Maternal Presentation Maternal Presentation: Active Labor Operative Information Date of Procedure: 03/25/23 Pre-Operative Diagnosis: 38 weeks, labor, hx of hep C, Hx Drug abuse, care elsewhere, anemia in 3rd trimester, h/o delivery Post-Operative Diagnosis: same, live female infant Surgery / Procedure Performed: Spontaneous Vaginal Delivery Type of Anesthesia: Epidural Estimated Blood Loss: 100 Time of Delivery: 13:50 Findings Description of Procedure: Regressed to fully dilated. Good maternal pushing efforts delivered the infant's head followed by the anterior shoulder and the rest the 's body. was vigorous at time of delivery placed on the mother's chest for immediate skin to skin. Delayed cord clamping was performed. Perineum and vaginal tissue were intact. Placenta was delivered without complication and intact. IM and IV Pitocin were given per protocol. Presentation: Vertex Amniotic Membrane Rupture Type: Artificial Amniotic Fluid Description: Clear (After delivery of the fetus the amniotic fluid was clear behind the fetus) Placental Delivery Description: Spontaneous Placenta Disposition: [facility] Specimen(s) Removed: placenta Cord Vessel Description: 3 Vessels Cord Entanglement: None Infant A Gender: Female (1 minute): 9 (5 minute): 9 Delayed Cord Clamping: Yes Post Vaginal Delivery Medications Given After Delivery: IV Pitocin and IM Pitocin Episiotomy Description: None Laceration: None Complication Complications: None
[2023-03-25] MEDS: 0.9% Saline Lock 10 ML Syringe IV (15:30)
[2023-03-25] MEDS: Acetaminophen 500 MG Tablet 1000 MG PO (20:09)
[2023-03-25] MEDS: Ibuprofen 600 MG Tablet PO (20:09)
[2023-03-26] VITALS (7 sets, daily range): BP systolic 135–149; BP diastolic 65–85; PULSE 66–73; RESP 14–18; TEMP 36.2–37; O2SAT 97
--- NOTE | 2023-03-26 08:19 | PCM.PN.OB ---
Subjective Subjective Patient seen at bedside. Feeling good. Denies any pain. Ambulating and voiding without difficulty. Lochia decreasing. Objective Data Objective Data Vital Signs: Vital Signs Temp Pulse Resp BP Pulse Ox O2 Del Method 97.8 F 71 16 137/85 H 95 Room Air 03/26/23 03:55 03/26/23 03:55 03/26/23 03:55 03/26/23 03:55 03/25/23 13:58 03/25/23 17:08 Oxygen Delivery Method Room Air Weight: 151 lb 7.321 oz Body Mass Index (BMI) 26.8 Intake & Output: Intake and Output for Last 24 Hours 03/24/23 03/25/23 03/26/23 23:59 23:59 23:59 Intake Total 1738.34 / 1738.34 Output Total 900 / 900 Balance 838.34 / 838.34 Lab / Micro Data 03/25/23 10:15 03/25/23 11:30 Labs: Laboratory Results - last 24 hr 03/25/23 10:15: WBC 13.9 H, RBC 3.41 L, Hgb 11.3 L, Hct 33.5 L, MCV 98.2, MCH 33.1 H, MCHC 33.7, RDW Std Deviation 49.5 H, RDW Coeff of Debbie 13.9, Plt Count 203, MPV 10.6, Immature Gran % (Auto) 0.800, Neut % (Auto) 76.6 H, Lymph % (Auto) 14.7 L, [place] % (Auto) 7.2, Eos % (Auto) 0.4, Baso % (Auto) 0.3, Absolute Neuts (auto) 10.6 H, Absolute Lymphs (auto) 2.04, Nucleated RBC % 0, Syphilis Total Ab Non-reactive, Blood Type A POSITIVE, Antibody Screen NEGATIVE 03/25/23 10:20: Urine Opiates Screen NEGATIVE, Urine Methadone Screen NEGATIVE, Ur Barbiturates Screen NEGATIVE, Ur Phencyclidine Scrn NEGATIVE, Ur Amphetamines Screen NEGATIVE, MDMA (Ecstasy) Screen NEGATIVE, U Benzodiazepines Scrn NEGATIVE, Urine Cocaine Screen NEGATIVE, U Cannabinoids Screen NEGATIVE, Ur Drug Screen Comment 03/25/23 11:30: Creatinine 0.38 L, Estim Creat Clear Calc 174.19, Est GFR (MDRD) Af Amer 252, Est GFR (MDRD) Non-Af 208, Uric Acid 4.0, AST 13 L, ALT 15, U Random Total Protein 7.6, Urine Creatinine 15.80, Protein/Creatinin Ratio 481 H Micro: Microbiology 03/25/23 10:40 Genital vaginal Chlamydia trachomatis (PCR) - Final 03/25/23 10:40 Genital vaginal Neisseria gonorrhoeae (PCR) - Final ROS Eyes Eyes: Denies blurry vision, change in vision or spots in vision ENT HEENT: Denies dizziness or headache(s) Cardiovascular Cardiovascular: Denies abdominal pain, chest pain or dyspnea Respiratory/Chest Respiratory/Chest: Denies cough, dyspnea, shortness of breath at rest or shortness of breath with exertion Gastrointestinal Gastrointestinal: Denies abdominal pain, diarrhea or vomiting Genitourinary Genitourinary: Denies change in urinary stream, difficulty urinating or dysuria Musculoskeletal Musculoskeletal: Reports none Integumentary Integumentary: Denies rash Neurologic Neurologic: Denies dizziness, headache(s), memory loss or weakness Assessment & Plan (1) Vaginal delivery: (2) Tobacco use affecting in third trimester, antepartum: (3) with care elsewhere: (4) History of drug use: (5) Care and examination of lactating mother: PLAN: Plan PPD 1 Routine care Pain control support Anticipate D/C tomorrow- has to stay 36 hours pp for untreated GBS
[2023-03-26] MEDS: Ibuprofen 600 MG Tablet PO ×3 (08:26→22:31)
[2023-03-26] MEDS: Acetaminophen 500 MG Tablet 1000 MG PO ×3 (08:27→22:30)
--- NOTE | 2023-03-26 10:34 | CASEMGMT ---
Social Work Assessment Labor and Delivery Unit Patient Address: [address] [place] [address] Phone number: [phone] Date of Referral: 03/25/23 Time of Referral:? [id number] Referred By: Miryam Mcallister Date of Intervention: ??03/26/23 Time of Intervention:?1000 Reason for Referral:? other Sw completed chart review and acknowledges social work consult due to other. Sw presented to bedside and introduced self to mother of baby (JOSSELYN- Carrie). Sw explained reason for sw involvement and completed psychosocial assessment. Sw also asked MOB to completed [place] Depression Scale. History obtained from: medical records, MOB??? Household composition: MOB reports that currently living in the home is herself, father of baby (FOJena- Radha), MOB 14 year old son- El and parents older son together, Sherman (: 02/28/21). MOB states that they live in an appartment and she does not express any concerns. Patient's parent/guardian status: JOSSELYN states that she and FOB met at a [employer] and have been together for 4 years. MOB denies any domestic violence or intimate partner violence. Medical History: ?JOSSELYN is 3, para 3. JOSSELYN received routine care with [facility] throughout . JOSSLEYN delivered baby girl, named Ana Gandara, via vaginal delivery at 38 weeks gestation. Baby girl weighed 6lb 6oz at delivery and her apgars were 9 and 9. MOB states that she is breast feeding and it is going ok. Educational Status:? MOB states that she and FOB both obtained their GEDs Financial Status: FOB is employed outside of the home at [employer]. He does not get paternity leave but did take a day off of work. Infant Supplies:?MOB states that she has obtained all necessary baby supplies including: car seat, safe sleep space, clothes, diapers, wipes and a breast pump? Childcare/Caregiver(s):? MOB will be the primary caregiver to baby, along with FOB when he is not at work. Transportation:?? MOB states that both parents have their drivers license and reliable transportation. No transportation barriers at this time. Programs/Agencies Involved: ?MOB is connected to insurance through [employer] [facility] [employer] [facility] ([place] and [place]. Children Services/Legal Issues:?MOB states that she does have history with Children Services due her former substance use history. JOSSELYN states that she does have a history of heroin use, and gave her parents custody of her first son while she went through detox and inpatient substance use treatment. JOSSELYN states that when she finished the program she was able to get custody of her son back. JOSSELYN reports that that was almost 5 years ago. Behavioral Health Issues: ??Mental Health History: MOB states that PREET does not have any mental health diagnoses. JOSSELYN states that she has been diagnosed with anxiety in the past, however she feels that that diagnosis went hand in hand with her substance use history. JOSSELYN stated that she also experienced the baby blues after she had her second son two years ago. She stated that she felt down and sad. JOSSELYN stated that at that time she had also lost her job at at [employer] agency that she was really passionate about. JOSSELYN stated that she had worked at [employer] in [employer] and then was told that when her maternity leave was up she was no longer employed there because someone offered to do the job for free. JOSSELYN completed [place] Depression scale and her score was a 5. ??? Substance Use History:?JOSSELYN has history of heroin use, and will be sober for 5 years this month. MOB states that PREET does not have any addiction use history. ? Family History:???MOB states that her father is a dry alcoholic. MOB states that he will still drink from time to time.?? Drug Screens: All urine screens during were negative. ?? Family/Social Stressors:? JOSSELYN denies stressors at this time. Support Systems: JOSSELYN states that she has a lot of supports in place. MOB states that her parents are really supportive, PREET and a group of women that she meets with regularly are all supportive. Depression/Shaken Baby/Safe Sleeping:? Sw educated MOB on signs and symptoms of baby blues and depression. Sw provided MOB with literature to review. MOB expressed understanding. Sw educated MOB on shaken baby prevention and ABCs of safe sleep. MOB expressed understanding. ASSESSMENT:? MOB was appropriate and engaged during assessment. Baby observed to be content in cribette. MOB answered questions asked and elaborated at times on her answers. MOB not connected at this time to any mental health supports and was encouraged to do so to help her during this period. MOB with natural supports in place and has obtained all necessary items for baby. PLAN:? MOB and baby to be discharged when medically ready. ?No other services requested or indicated. Shanna Vallejo, OCEANOLOGY TEACHER, STUDENT WORKER
[2023-03-27 01:05] VITALS: BP 141/69; PULSE 58; RESP 18; TEMP 36.7; O2SAT 95
[2023-03-27] MEDS: Acetaminophen 500 MG Tablet 1000 MG PO (05:12)
[2023-03-27] MEDS: Ibuprofen 600 MG Tablet PO (05:12)
--- NOTE | 2023-03-27 06:17 | PCM.DC.SUM ---
Providers Date of Admission: 03/25/23 Primary Care Physician: [facility] Phys Reason For Visit: VAGINAL DELIVERY Diagnosis Discharge Diagnosis (1) Vaginal delivery: Status: Acute Code(s): O80 - Encounter for full-term uncomplicated delivery (2) Tobacco use affecting in third trimester, antepartum: Status: Acute Code(s): O99.333 - Smoking (tobacco) complicating , third trimester (3) with care elsewhere: Status: Acute Code(s): Z34.90 - Encounter for supervision of normal , unspecified, unspecified trimester (4) History of drug use: Status: Acute Code(s): F19.91 - Other psychoactive substance use, unspecified, in remission (5) Care and examination of lactating mother: Status: Acute Code(s): Z39.1 - Encounter for care and examination of lactating mother Plan PPD 2 Routine care Pain control support D/C home- had to stay 36 hours pp for untreated GBS Medications at Discharge Home Medications vits,calcium no.78-iron fumarate-folic acid 29 mg-1 mg tablet (Prenatabs FA) 1 tab PO DAILY 02/28/21 acetaminophen 325 mg tablet (Tylenol) 650 mg PO Q6H pain 03/25/23 ferrous sulfate 27 mg iron tablet 27 mg PO DAILY anemia 03/25/23 ondansetron 4 mg disintegrating tablet 4 mg PO Q6H PRN nausea 03/25/23 Hospital Course Procedures None Summary of Care Provided Minutes Spent on Discharge: 20 Hospital Course: Patient had . Hospital course was uneventful Physical Exam Const alert and no apparent distress General Appearance: cooperative and comfortable Exam Limitations: no limitations HEENT normocephalic Eyes General Eye: normal appearance of both eyes Neck full ROM General: normal visual inspection Chest Chest: symmetrical chest wall rise Resp normal respiratory effort and normal air movement Effort and Inspection: symmetric chest movement Auscultation: clear to auscultation bilaterally Cardio regular rate and regular rhythm GI normal to inspection, nondistended, normoactive bowel sounds Back/Spine normal ROM Extremity full ROM and no calf tenderness General Extremity: normal exam except as noted Skin no rashes or lesions noted Neuro CN's II-XII intact bilaterally Psych mental status grossly normal Weight / BMI Weight Weight: 151 lb 7.321 oz Body Mass Index (BMI) 26.8 ABG / Lab / Microbiology Data 03/25/23 10:15 03/25/23 11:30 Microbiology: Microbiology 03/25/23 10:40 Genital vaginal Chlamydia trachomatis (PCR) - Final 03/25/23 10:40 Genital vaginal Neisseria gonorrhoeae (PCR) - Final D/C Instructions Discharge Diet: No restrictions Discharge Activity: Return to Normal Activity, May Shower and May Take a Tub Bath May resume sexual activity in: 4-6 weeks Weight Bearing Status: Weight bearing as tolerated Call your doctor if you observe: Fever of 101 or Higher, Inability to urinate, Using more than 1 pad per hour, Shortness of breath, Dizziness, Swelling in the ankles, Chest pain, Calf discomfort and Uncontrolled pain Please Follow Up With: Beverly Huynh CNM When: Within 10 days Meaningful Use Info Meaningful Use Diagnoses (Choose all that apply): None applicable Discharge Plan Admission Admit Date/Time: 03/25/23 10:00 Primary Reason for Your Visit: Labor and Delivery Attending Provider: Miryam Duarte Primary Care Provider: Care Physician[facility]iloh Primary Discharge Orders/Prescriptions Prescriptions: Continued Prenatabs FA 29-1 mg Tablet 1 tab PO DAILY ondansetron 4 mg tablet,disintegrating 4 mg PO Q6H PRN (Reason: nausea) Patient Comments: dissolve 1 tablet ON TONGUE every 6 hours if needed for nausea acetaminophen [Tylenol] 325 mg tablet 650 mg PO Q6H Discontinued promethazine 12.5 mg tablet 12.5 mg PO QHS PRN PRN (Reason: nausea) Patient Comments: take 1 tablet by mouth every 4 to 6 hours if needed for nausea No Action ferrous sulfate 27 mg iron tablet 27 mg PO DAILY Referrals / Follow Up: Care Physician,[facility] Primary [Primary Care Provider] - Disposition Disposition (needs filled in before D/C Order can be placed): Home, Self Care
--- NOTE | 2023-03-27 07:10 | NURSING ---
bedside report given to Della Eaton RN who is assuming care of pt at this time This RN reviewed and agrees with all documentation done by Ham [employer]inson student nurse.
[2023-03-27 07:41] VITALS: BP 147/85; PULSE 69; RESP 18; TEMP 36.6; O2SAT 95
[2023-03-27 09:22] VITALS: BP 147/85; PULSE 69; RESP 18; TEMP 36.6; O2SAT 95
== END 2023-03-27 10:00 | disposition home or self-care (01) | DRG 560 ==
PROVIDERS: Admitting Provider Obstetrics & Gynecology; Visit Provider Obstetrics & Gynecology
DX: O99.824 Streptococcus B carrier state complicating childbirth (principal); Z37.0 Single live birth; D64.9 Anemia, unspecified; F17.200 Nicotine dependence, unspecified, uncomplicated; O99.324 Drug use complicating childbirth; F19.91 Other psychoactive substance use, unspecified, in remission; O99.334 Smoking (tobacco) complicating childbirth; O99.02 Anemia complicating childbirth; Z3A.38 38 weeks gestation of pregnancy
CPT/HCPCS: 59025; 59050; 80307; 82565; 82570; 84156; 84450; 84460; 84550; 85025; 86780; 86850; 86900; 86901; 87491; 87591; 99221; J7120; A4216; G0378

== ENCOUNTER 2023-04-08 09:43 | Emergency (ER) | payer MEDICAID, SELFPAY ==
[2023-04-08 09:44] VITALS: BP 153/113; PULSE 77; RESP 14; TEMP 36.4; O2SAT 100; BMI 24.0
--- NOTE | 2023-04-08 09:52 | ED.RN ---
PT. SYMPTOM FREE AT THIS TIME. SPOKE WITH DR. RODRIGUEZ IF WE SHOULD SEND PT. RO OB OR SEE IN ED FIRST. STATES HE WILL SEE IN ER FIRST.
--- NOTE | 2023-04-08 10:04 | EDS_ITS ---
HPI History of Present Illness Chief Complaint: Hypertension Informant: patient Narrative Narrative: 32-year-old female 2 weeks presenting to the emergency room with hypertension. Patient states that she had a uneventful . She states that when she got to triage 2 weeks ago for delivery her blood pressure was elevated and has remained elevated since. She states that she saw [employer] OPERATOR yesterday who took 6 blood pressure readings and stated that her blood pressure was 147/99. She was given a prescription for labetalol 100 mg twice daily. She has not taken any of this. She took her blood pressure again this morning and it was elevated and she messaged her OB who advised coming to emergency. Patient states she is asymptomatic. She denies headache vision changes neurologic symptoms leg swelling chest pain shortness of breath PFSH PFSH Medical History Anemia affecting in third trimester Care and examination of lactating mother History of drug use History of hepatitis C History of delivery, currently with care elsewhere Seizures Tobacco use affecting in third trimester, antepartum Vaginal delivery Home Medications vits,calcium no.78-iron fumarate-folic acid 29 mg-1 mg tablet (Pre natabs FA) 1 tab PO DAILY 02/28/21 [History Last Taken 03/23/23] acetaminophen 325 mg tablet (Tylenol) 650 mg PO Q6H pain 03/25/23 [History Last Taken 03/23/23] ferrous sulfate 27 mg iron tablet 27 mg PO DAILY anemia 03/25/23 [History Last Taken 03/23/23] ondansetron 4 mg disintegrating tablet 4 mg PO Q6H PRN nausea 03/25/23 [History Last Taken 03/23/23] Allergy/AdvReac Type Severity Reaction Status Date / Time codeine Allergy Hives Verified 04/08/23 09:44 Penicillins Allergy Anaphylaxis Verified 04/08/23 09:44 Surgical History History of surgery History of surgery Social History Smoking Status: Light Smoker (<10/day) ROS ROS ED Constitutional Constitutional ED: Denies chills or weight loss Eyes Eyes: Denies change in vision or diplopia ENT ENT ED: Denies ear pain, rhinorrhea or sore throat Cardiovascular Cardiovascular: Denies chest pain, orthopnea, palpitations or racing heartbeat Respiratory/Chest Respiratory/Chest: Denies cough, dyspnea or orthopnea Gastrointestinal Gastrointestinal: Denies abdominal pain, diarrhea, nausea or vomiting Genitourinary Genitourinary ED: Denies dysuria, hematuria or urinary frequency Musculoskeletal Musculoskeletal: Denies arthralgias or myalgias Integumentary Denies abscess or rash Neurologic Neurologic: Denies headache(s) or weakness Psychiatric Psychiatric: Denies anxiety, depression, suicidal ideation or suicidal thoughts Endocrine Endocrinology: Denies polydipsia, polyphagia or polyuria Allergic/Immunologic Allergic/Immunologic ED: Denies mouth swelling, tongue swelling or urticaria EXAM Physical Exam Const Vital Signs: 04/08/23 09:44 04/08/23 09:43 04/08/23 11:00 Temperature 97.6 F L Temperature Source Temporal Pulse Rate 77 Respiratory Rate 14 Respiratory Effort Normal Respiratory Pattern Normal Blood Pressure 153/113 H 158/100 H Blood Pressure Mean 126 119 Pulse Ox 100 Oxygen Delivery Method Room Air Room Air Positive well nourished and well developed General Appearance ED: well developed HEENT Reports normocephalic, head/scalp atraumatic and moist mucous membranes Eyes PERRL and EOMs intact bilaterally Neck no lymphadenopathy, supple and no JVD Resp normal respiratory effort and clear to auscultation bilaterally Cardio regular rate, regular rhythm and no murmurs GI normal to inspection, nondistended, normoactive bowel sounds and non-tender Palpation: soft Back/Spine no CVA tenderness and normal ROM Extremity normal to inspection General Extremety ED: Negative for edema General Extremity: Negative for edema Neuro oriented x3 and CN's II-XII intact bilaterally Sensorium / Orientation: alert Motor Exam: strength 5/5 throughout Psych mental status grossly normal Mood & Affect: Negative for depressed or tearful Skin no rashes or lesions noted and no wounds MDM MDM MDM Narrative Medical decision making narrative: Manual blood pressure readings 160/108 and 152/100. White count 9.2 hemoglobin 14.3 and a platelet count of 329. Normal liver enzymes. Coagulations normal. Urinalysis demonstrates no proteinuria negative drug screen. I discussed the patient with her psychotherapist counselor. Patient will follow-up in the office on Friday. She is to take her labetalol at least twice a day increasing to 3 times a day if need be. Lab Data Attestation: I reviewed the patient's lab results. Labs: Laboratory Results - last 24 hr 04/08/23 04/08/23 10:40 10:48 WBC 9.2 RBC 4.55 Hgb 14.3 Hct 43.8 MCV 96.3 MCH 31.4 MCHC 32.6 RDW Std Deviation 47.4 H RDW Coeff of Debbie 13.3 Plt Count 329 MPV 9.6 Immature Gran % (Auto) 0.400 Neut % (Auto) 67.3 Lymph % (Auto) 22.4 Hendricks % (Auto) 4.4 Eos % (Auto) 4.4 Baso % (Auto) 1.1 H Absolute Neuts (auto) 6.2 Absolute Lymphs (auto) 2.05 Nucleated RBC % 0 PT 12.5 INR 0.9 APTT 30.7 Sodium 141 Potassium 3.8 Chloride 111 H Carbon Dioxide 25.0 Anion Gap 5 BUN 10 Creatinine 0.59 Estim Creat Clear Calc 112.19 Est GFR (MDRD) Af Amer 150 Est GFR (MDRD) Non-Af 124 BUN/Creatinine Ratio 16.9 Glucose 127 H Calcium 9.1 Total Bilirubin 0.20 Direct Bilirubin 0.09 AST 16 ALT 24 Alkaline Phosphatase 103 Total Protein 7.7 Albumin 3.8 Globulin 3.9 Urine Color Yellow Urine Clarity Clear Urine pH 7.0 Ur Specific [place] 1.010 Urine Protein Negative Urine Glucose (UA) Normal Urine Ketones Negative Urine Occult Blood 25 H Urine Nitrite Negative Urine Bilirubin Negative Urine Urobilinogen Normal Ur Leukocyte Esterase 25 H Urine RBC 0 SEEN Urine WBC 0 SEEN Ur Squamous Epith Cells 0 SEEN Urine Bacteria 0 SEEN Urine Mucus 0 SEEN Urine Opiates Screen NEGATIVE Urine Methadone Screen NEGATIVE Ur Barbiturates Screen NEGATIVE Ur Phencyclidine Scrn NEGATIVE Ur Amphetamines Screen NEGATIVE MDMA (Ecstasy) Screen NEGATIVE U Benzodiazepines Scrn NEGATIVE Urine Cocaine Screen NEGATIVE U Cannabinoids Screen NEGATIVE Ur Drug Screen Comment Discharge Plan Triage Chief Complaint: Hypertension ED Provider: Herrera Moreno Dx/Rx/DC Orders Clinical Impression: hypertension Instructions: Understanding Preeclampsia Prescriptions: No Action Prenatabs FA 29-1 mg Tablet 1 tab PO DAILY ondansetron 4 mg tablet,disintegrating 4 mg PO Q6H PRN (Reason: nausea) Patient Comments: dissolve 1 tablet ON TONGUE every 6 hours if needed for nausea ferrous sulfate 27 mg iron tablet 27 mg PO DAILY acetaminophen [Tylenol] 325 mg tablet 650 mg PO Q6H Primary Care Provider: Care Physician,No Primary Referrals: Suellen Lester MD [Med Staff - Active Staff] - (ON FRIDAY) Care Physician,No Primary [Primary Care Provider] - Activity Restrictions/Additional Instructions: You may take your labetalol up to 3 times a day. You need to call Dr. Lester's office and obtain an appointment for Friday. Continue to monitor your blood pressure Disposition Disposition: Home, Self Care
[2023-04-08 10:49] LABS: Absolute Lymphocyte Count 2.05 X10^3/uL (0.83-4.51); Absolute Neutrophil Count 6.2 X10^3/uL (2.0-7.7); Basophil% 1.1 % (0-1); Eosinophils% 4.4 % (0-5); Hematocrit 43.8 % (37-47); Hemoglobin 14.3 g/dL (12.0-15.0); Lymphocyte # 2.05 X10^3/ul (0.83-4.51); Lymphocyte % 22.4 % (19-41); Mean Corp Hgb Conc 32.6 g/dL (32-36); Mean Corpuscular Hgb 31.4 pg (27.0-32.0); Mean Corpuscular Volume 96.3 fL (81-99); Mean Platelet Vol. 9.6 fl (6.2-12.0); Monocyte% 4.4 % (0-10); NRBC Flagged by Analyzer 0 % (0-5); Neutrophil # 6.18 X10^3/uL (2.7-7.7); Neutrophil % 67.3 % (47-70); Platelet Count 329 K/mm3 (150-450); RBC Distribution Width CV 13.3 % (11.6-14.6); RBC Distribution Width SD 47.4 fl (35.1-43.9); Red Blood Count 4.55 M/mm3 (4.2-5.4); White Blood Count 9.2 K/mm3 (4.4-11.0)
[2023-04-08 10:53] LABS: Bacteria 0 SEEN /hpf (None Seen); Mucous, Urine 0 SEEN /hpf (<or=2+); Red Blood Cells-Urine 0 SEEN /hpf (0-5); Squamous Epithelial Cells - UA 0 SEEN /hpf (5-10); White Blood Cells 0 SEEN /hpf (0-5)
[2023-04-08 10:57] LABS: Color, Urine Yellow (Yellow); Glucose, Dipstick Normal (Normal); Ketone-Dipstick Negative (Negative); Leukocyte Esterase-Dipstick 25 /ul (Negative); Nitrite-Dipstick Negative (Negative); Occult Blood-Urine 25 /ul (Negative); Protein-Dipstick Negative (Negative); Urine Bilirubin Dipstick Negative (Negative); Urine Clarity Clear (Clear); Urine Urobilinogen Normal (Normal)
[2023-04-08 10:59] LABS: International Normalized Ratio 0.9; Prothrombin Time (Protime)PT. 12.5 SECONDS (11.7-14.9)
[2023-04-08 11:00] VITALS: BP 158/100
[2023-04-08 11:01] LABS: Partial Thromboplast Time 30.7 Seconds (24.1-36.2)
[2023-04-08 11:04] LABS: AST(SGOT) 16 U/L (15-37); Alanine Aminotransfer ALT/SGPT 24 U/L (13-56); Albumin, Serum 3.8 g/dL (3.2-5.0); Alkaline Phosphatase 103 U/L (45-117); Anion Gap 5 (5-15); BUN 10 mg/dL (7-18); BUN/Creat Ratio 16.9 RATIO (10-20); Bilirubin, Direct 0.09 mg/dL (0.00-0.30); Calcium,Total 9.1 mg/dL (8.5-10.1); Chloride 111 mmol/L (98-107); Creatinine, Serum 0.59 mg/dL (0.55-1.02); EST Glomerular Filtration Rate 124 mL/min (>60); Est Glom Filt Rate - Afr Amer 150 mL/min (>60); Estimated Creatinine Clearance 112.19 ml/min; Globulin 3.9 g/dL (2.2-4.2); Glucose 127 mg/dL (74-106); Potassium 3.8 mmol/L (3.5-5.1); Protein, Total 7.7 g/dL (6.4-8.2); Sodium Level 141 mmol/L (136-145)
[2023-04-08 11:17] LABS: Amphetamine Urine VISTA NEGATIVE (<1000 ng/mL); Barbiturate Urine VISTA NEGATIVE (< 200 ng/mL); Benzodiazepine Urine VISTA NEGATIVE (< 200 ng/mL); Cocaine Urine VISTA NEGATIVE (< 300 ng/mL); Ecstacy Urine VISTA NEGATIVE (< 500 ng/mL); Methadone Urine VISTA NEGATIVE (< 300 ng/mL); PCP Urine VISTA NEGATIVE (< 25 ng/mL); THC Urine VISTA NEGATIVE (< 50 ng/mL); Vista UDS pH Range 6
[2023-04-08 12:37] VITALS: BP 152/101; PULSE 64
[2023-04-08] MEDS: Labetalol 100 MG Tablet PO (12:39)
--- NOTE | 2023-04-08 12:40 | ED.RN ---
CONSULTED W/ DR RODRIGUEZ REGARDING PATIENT HR BEING LOW 60'S PRIOR TO GIVEN PO LABETALOL, OK TO GIVE
[2023-04-08 12:41] VITALS: BP 152/101; PULSE 63; RESP 15
== END 2023-04-08 12:41 | disposition home or self-care (01) ==
PROVIDERS: Emergency Provider Emergency Medicine; Visit Provider Emergency Medicine
DX: O16.5 Unspecified maternal hypertension, complicating the puerperium (principal); F17.200 Nicotine dependence, unspecified, uncomplicated; Z3A.00 Weeks of gestation of pregnancy not specified; O99.335 Smoking (tobacco) complicating the puerperium
CPT/HCPCS: 80048; 80076; 80307; 81001; 85025; 85610; 85730; 99284; A4216

== ENCOUNTER 2023-05-09 05:49 | Day surgery (SDC) | payer MEDICAID, SELFPAY ==
--- NOTE | 2023-05-08 07:58 | HP.PCM.OB_ITS ---
History and Physical Date of Admission: 05/09/23 Pre-Op History and Physical ? HPI: The patient is a 32 year old female presenting for pre-operative visit. She is scheduled for laparoscopic bilateral salpingectomy , for desires sterilization on 05/09/23. Procedure discussed along with risks, benefits and complications. Other alternatives discussed for management. Consent form signed? Yes. ? ? PAST MEDICAL HISTORY PAST MEDICAL HISTORY Diagnosis Date ? Abnormal Pap smear of cervix 2013 ? +HPV ? Anemia ? ? Hepatitis C ? ? Per report - no confirmation ? History of drug abuse (HCC) 02/19/2023 ? 02/19/2023 She has a history of heroin addiction. She states I tried just about anything and everything, regarding to my question about what drugs she has used in the past. She states she has been clean for 5 years. She went to a recovery program called [facility]. States she even went on to help others in this program. She states she was in halfway in 2018 for drug related issues. TKRN ? Opioid dependence (HCC) ? ? depression ? ? Seizure (HCC) ? ? with drug use-none x10 years ? ? PAST SURGICAL HISTORY PAST SURGICAL HISTORY Procedure Laterality Date ? COLPO ENTIRE VAG W CERVIX WBIOPSY ? ? ? L'SCOPE CHOLECYSTECTOMY ? ? ? TONSILLECTOMY HX ? at age 12 ? ? ? CURRENT MEDICATIONS Current Outpatient Medications Medication Sig Dispense Refill ? NIFEdipine ER (PROCARDIA XL) 30 mg 24 hr tablet Take 1 tablet by mouth once daily. 30 tablet 3 ? labetalol (TRANDATE) 200 mg tablet Take 1 tablet by mouth three times a day. 90 tablet 0 ? FOLIC ACID/MV,FE,OTHER MIN (CENTRUM ORAL) Take 1 tablet by mouth once daily. ? ? ? VIT 55-NEXH-YREXX-DHA ORAL Take by mouth. ? ? ? No current facility-administered medications for this visit. ? ? ALLERGIES: Codeine and Penicillins ? PERSONAL HISTORY: SOCIAL HISTORY Social History ? Tobacco Use ? Smoking status: Every Day ? ? Packs/day: 0.50 ? ? Years: 15.00 ? ? Additional pack years: 0.00 ? ? Total pack years: 7.50 ? ? Types: Cigarettes ? Smokeless tobacco: Never Vaping Use ? Vaping Use: Former ? Substances: Nicotine Substance Use Topics ? Alcohol use: Not Currently ? ? Comment: Social - never daily drinker. CAGE negative ? Drug use: Not Currently ? ? Comment: Hx of IV Heroin abuse. Also abused Bath Salts ? FAMILY HISTORY: FAMILY HISTORY FAMILY HISTORY Problem Relation Age of Onset ? Heart Mother ? ? Hypertension Mother ? ? Heart Father 30 ? Emphysema Father ? ? COPD Father ? ? Diabetes Father ? ? Diabetes Brother ? ? COPD Maternal Grandmother ? ? Emphysema Maternal Grandmother ? ? Dementia Maternal Grandmother ? ? Heart Maternal Grandfather ? ? Stroke Maternal Grandfather ? ? COPD Paternal Grandmother ? ? Emphysema Paternal Grandmother ? ? Heart Paternal Grandfather ? ? Drug abuse Paternal Grandfather ? ? Heart Paternal Uncle ? ? No Known Problems Son ? ? No Known Problems Son ? ? ? REVIEW OF SYMPTOMS: negative except as noted above PHYSICAL EXAMINATION: ? VITALS: Blood pressure 128/74, weight 136 lb (61.7 kg), last menstrual period 07/01/2022, not currently . ? GENERAL: The patient is well nourished, well hydrated in no acute distress. , The patient is oriented to time, place, and person. NECK: full range of motion LUNGS: Clear to auscultation bilaterally. no wheezes, rhonchi or rales HEART: Regular rate and rhythm and Normal heart sounds ? IMPRESSION: 32yo desires sterilization- PP PRE, BPs stable on Procardia and labetalol. Cardiac echo and ekg wnl. ? PLAN: laparoscopic bilateral salpingectomy ? Pt has been counseled on risks/benefits and alternatives of surgery including but not limited to anesthesia, bleeding, infection, injury to pelvic structures including bowel, bladder, ureters and vessels. Pt wishes to proceed with surgery at this time. ? Discussed with patient will need follow up with PCP for follow up of elevated BPs. Pt reports would like to schedule with Dr. Wilson Olivares. ? BPs at home trending down- 120s/70-80s (had two in 140s/90s). Pt reports no CP, sob, dizziness. No headaches. ? I have reviewed and updated past medical and surgical history, medications and allergies Miryam Mcallister MD ?5:36 PM
[2023-05-09 06:30] LABS: Internal QC Validated? YES +Cl - CLEAR BKGD; Pregnancy, Urine Negative Negative
[2023-05-09 06:31] VITALS: BP 111/82; PULSE 69; RESP 16; TEMP 36.6; O2SAT 99; BMI 24.2
[2023-05-09] MEDS: Lactated Ringers 1,000 ML 15 ML IV (06:34)
--- NOTE | 2023-05-09 07:30 | FALS_PTH ---
PATIENT: GA BOOGIE [place] [facility] [id number] AGE/SX: 32/F ROOM: RE05/09/[address]: Dr. Miryam Duarte, MDDOB: 1990 BED: DIS: 05/09/2023 SPEC #: [id number] RECD: 05/09/23 10:57 STATUS: LC REKevin #: [id number] TORI: 05/09/23 07:[address]: Miryam Duarte DEPT: SURGICAL PATHOLOGY RECD BY: Kirsten Mon ENTERED: 05/09/23 12:16 SP TYPE: FALL TUBES OTHR DR: Dr. Ap Farias DO Tissues: Fallopian tube Procedures: Surgery Specimen Level II Surgery Specimen Level IV HEADER OPERATION: Laparoscopic salpingectomy PRE-OP DIAGNOSIS: Sterilization TISSUE SUBMITTED: Bilateral fallopian tubes MICROSCOPIC DIAGNOSIS Bilateral fallopian tubes, salpingectomy: One fallopian tube with a small adenofibroma (0.4 cm in greatest dimension). Second fallopian tube, no pathologic diagnosis. DEJA:emmy 05/13/2023 COMMENT Case has been reviewed in consultation with Dr. Medrano who concurs with the above diagnosis. IDC:AM MICROSCOPIC DESCRIPTION Slides are reviewed. GROSS DESCRIPTION Received in fixative is one container labeled with the patient's name and designated bilateral fallopian tubes. The specimen consists of two fallopian tubes with an average length of 5.0 cm and has an average diameter of 0.5 cm. Both fallopian tubes have normal fimbriated ends. No mass lesions are identified. Customer Service Voice sections are submitted in two cassettes as follows: 1 - one fallopian tube, 2??the other fallopian tube. / AM:emmy 05/09/2023 The rest of the specimen is submitted in four more cassettes, 3-6. / DEJA:emmy 05/12/2023 TC:1 CPT: 84107, 92697
[2023-05-09] MEDS: Bupivacaine 0.5% PF 10 ML VIAL (07:51)
--- NOTE | 2023-05-09 08:07 | PCM.OPRPT ---
Report of Operation Date of Procedure: 05/09/23 Pre-Operative Diagnosis: sterilization request Post-Operative Diagnosis: same Surgery/Procedure Performed:: laparoscopic Bilateral salpingectomy Description of Surgical Findings:: Normal tubes and ovaries bilaterally Surgeon: Miryam Duarte monotype mechanic: None (Jorge Leesheridan MS4) Type of Anesthesia: General and Local Special Medications: 0.5% marcaine Specimen's removed: Bilateral fallopian tubes Drains: none Estimated Blood Loss (mL): <5cc Fluids Replaced: 500cc Description of Procedure: After informed consent was obtained patient was taken to the operating room she was placed in supine position she was given anesthesia. She was then placed in [facility] and she was prepped and draped in normal sterile fashion. Bladder was drained prior to the start of procedure. At this time attention was turned to the vaginal portion where weighted speculum placed at posterior fornix vagina single-tooth tenaculum was used to gently grasp the internal the cervix. Uterine manipulator was placed without difficulty. Legs then placed in parallel with the abdomen the tenaculum and the weighted speculum were removed. 2 towel clamps were placed at level of umbilicus. Marcaine was injected infraumbilical and a small incision was made. The 5 mm trocar was placed under direct visualization. CO2 gas was used to insufflate the intra-abdominal cavity. Upon inspection no gross abnormalities appreciated- the uterus tubes and ovaries appeared to be normal. At this time then the LLQ and RLQ ports were placed First Marcaine was injected and small incision was made a knife and the 5 mm trocars were placed. At this time then tubes were traced back to the fimbriated ends. enseal was used to coagulate and ligate along mesosalpinx bilaterally until tubes removed completely. Good hemostasis was appreciated. At this time procedure was deemed complete successful. The gas was desufflated on from the intra-abdominal cavity. The trochars were removed. Skin was closed using 4-0 Monocryl in a subcutaneous fashion. Dermabond glue was placed. Instrument lap and needle counts were correct ?2. The uterine manipulator was removed. Vaginal sweep was performed it was negative. There were no complications anticipated normal postoperative course for this patient. Grafts/Implants Used: none Procedure Start Time: 07:40 Procedure Stop Time: 08:04 Complications none Admit VTE Documentation VTE Present on Admission: Yes VTE Mechan Device Prophylaxis: SCD's VTE Pharm Prophylaxis ordered?: No Reason prophylaxis not ordered:: Procedure Not Indicated
--- NOTE | 2023-05-09 08:10 | DCINST_ITS ---
Discharge Instructions Diet Discharge Diet: No restrictions Activity May resume sexual activity in: 2 weeks Lifting Restrictions: 20-25 lbs Dressing / Incision Call your doctor if your incision/area has: Continuous Slow Oozing, Sudden Increased Bleeding, Increased Pain/ Swelling, Increased Redness, Foul Smelling Discharge and Swelling at the incision site Call your doctor if you observe: Fever of 101 or Higher, Inability to urinate, Inability to have a bowel movement, Using more than 1 pad per hour and Uncontrolled pain Additional Dressing/Incision Instructions:: You have skin glue over your incision sites, do not pick off. You may shower and let the soap and water run over the incision sites and dab dry. Follow Up Care Please Follow Up With: Miryam Duarte MD When: 1-2 weeks post OP if you need an appointment please call [phone] Test Results: Test results from this visit will be discussed in further detail at your follow- up appointment, if applicable. Discharge Plan Admission Attending Provider: Miryam Duarte Primary Care Provider: Ap Farias Discharge Orders/Prescriptions Prescriptions: No Action ondansetron 4 mg tablet,disintegrating 4 mg PO Q6H PRN (Reason: nausea) Patient Comments: dissolve 1 tablet ON TONGUE every 6 hours if needed for nausea acetaminophen [Tylenol] 325 mg tablet 650 mg PO Q6H labetalol 200 mg tablet 200 mg PO TID Patient Comments: take 1 tablet by mouth three times a day Referrals / Follow Up: Care Physician,No Primary [Non-Staff] - Disposition Disposition (needs filled in before D/C Order can be placed): Home, Self Care
[2023-05-09 08:16] VITALS: BP 111/82; BP 115/81; PULSE 68; RESP 16; TEMP 36.8; O2SAT 100
[2023-05-09 08:30] VITALS: BP 111/82; BP 135/91; PULSE 56; RESP 16; O2SAT 99
[2023-05-09 08:45] VITALS: BP 111/82; BP 128/83; PULSE 58; RESP 16; TEMP 37.1; O2SAT 98
[2023-05-09 09:11] VITALS: BP 111/82
== END 2023-05-09 09:28 | disposition home or self-care (01) ==
LOC: SDC 05:51 → AC 05:52
PROVIDERS: PCP Family Medicine; Referring Provider Obstetrics & Gynecology; Visit Provider Obstetrics & Gynecology
PROC: (CPT 58661; principal; 2023-05-09 07:15)
DX: Z30.2 Encounter for sterilization (principal); F17.210 Nicotine dependence, cigarettes, uncomplicated; D28.2 Benign neoplasm of uterine tubes and ligaments; I10 Essential (primary) hypertension
CPT/HCPCS: 58661; 00840; 81025; 88302; 88305; J7120; C1760; J2405